=== PATIENT | female | born 1975 | race Caucasian/White ===

== ENCOUNTER 2018-01-18 07:03 | Inpatient (IN) | payer MEDICAID, OTHER ==
[~2018-01-18] VITALS: Ht 160 cm; Wt 68.2 kg
[~2018-01-18 07:03] MED LIST: CeFAZolin 2 GM/DEXTROSE 50 ML IV ONE; RINGERS SOLUTION,LACTATED 1,000 ML IV ONE
[2018-01-18] MEDS ORDERED: PREG50 PO (07:36)
[2018-01-18] MEDS ORDERED: ESCI20TA PO (07:36)
[2018-01-18] MEDS ORDERED: MAGN250T2 PO (07:36)
[2018-01-18] MEDS ORDERED: ARIP5TAB8 PO (07:36)
[2018-01-18] MEDS ORDERED: HYDR200T4 PO (07:36)
[2018-01-18] MEDS ORDERED: PILOC5 PO (07:36)
[2018-01-18] MEDS ORDERED: OMEP20 PO (07:36)
[2018-01-18] MEDS ORDERED: TRAZ-220 PO (07:36)
[2018-01-18] MEDS ORDERED: LUBI24CA2 PO (07:36)
[2018-01-18 07:38] LABS: BASOPHILS % (AUTO) 0.9 % (0.0-2.0); EOSINOPHILS % (AUTO) 0.9 % (1.0-6.0); HEMATOCRIT 37.9 % (36-46); HEMOGLOBIN 12.4 g/dL (12.0-16.0); LYMPHOCYTES # (AUTO) 1.6 K/uL (1.0-4.8); LYMPHOCYTES % (AUTO) 35.4 % (22.0-44.0); MEAN CORPUSCULAR HEMOGLOBIN 28.8 pg (26.0-34.0); MEAN CORPUSCULAR HGB CONC 32.8 G/dL (31.0-37.0); MEAN CORPUSCULAR VOLUME 88 fL (80-100); MONOCYTES # (AUTO) 0.6 K/uL (0.1-1.0); MONOCYTES % (AUTO) 12.9 % (2.0-9.0); NEUTROPHILS # (AUTO) 2.2 K/uL (1.8-7.7); NEUTROPHILS % (AUTO) 49.9 % (40.0-70.0); PLATELET COUNT (AUTO) 191 K/uL (150-450); RED BLOOD CELL COUNT(AUTO) 4.32 MIL/uL (4.00-5.20)
[2018-01-18 08:14] LABS: INR 0.9 (0.9-1.1); PROTHROMBIN TIME 9.9 SEC (9.4-11.6)
[2018-01-18 08:36] LABS: ANION GAP 7 mmol/L (8-16); CALCIUM, TOTAL 8.3 mg/dL (8.8-10.5); CARBON DIOXIDE 26 mmol/L (22-29); CHLORIDE 106 mmol/L (98-107); CREATININE 0.92 mg/dL (0.60-1.30); GLOMERULAR FILTR. RATE CALC > 60 mL/min (>60); GLUCOSE,RANDOM 91 mg/dL (70-110); SODIUM SERUM 139 mmol/L (136-145); UREA NITROGEN, BLOOD 24 mg/dL (7-18)
[2018-01-18 08:42] LABS: ALANINE AMINOTRANSFERASE 19 U/L (12-78); ALBUMIN 3.7 g/dL (3.4-5.0); ALKALINE PHOSPHATASE 65 U/L (46-116); ASPARTATE AMINOTRANSFERASE 21 U/L (15-37); BILIRUBIN,TOTAL 0.3 mg/dL (0.1-1.0); TOTAL PROTEIN, SERUM 7.2 g/dL (6.4-8.2)
[2018-01-18] MEDS ORDERED: GUM MASTIC/STORAX/MSAL/ALCOHOL LIQUID 0.67 ML VIAL TP ONE (09:45)
[2018-01-18] MEDS ORDERED: MEPERIDINE HCL/PF 25 MG/0.5 ML AMP IVP PRN (10:15)
[2018-01-18] MEDS ORDERED: HYDROmorphone 2 MG/ML SYRINGE IVP PRN (10:15)
[2018-01-18] MEDS ORDERED: DiphenhydrAMINE HCL 50 MG/ML VIAL IVP PRN (10:45)
[2018-01-18] MEDS ORDERED: BENZOCAINE/MENTHOL LOZENGE PO PRN (10:45)
[2018-01-18] MEDS ORDERED: ZOLPIDEM TARTRATE 10 MG TABLET PO PRN (10:45)
[2018-01-18] MEDS ORDERED: MAG HYDROX/AL HYDROX/SIMETH 30 ML SUSP UDCUP PO PRN (10:45)
[2018-01-18] MEDS ORDERED: MAGOX PO (10:47)
[2018-01-18] MEDS ORDERED: PREG75 PO (10:47)
[2018-01-18] MEDS ORDERED: MEPERIDINE HCL/PF 25 MG/0.5 ML AMP ONE (11:06)
[2018-01-18] MEDS ORDERED: FentaNYL CITRATE-PF 100 MCG/2 ML VIAL ONE (11:07)
[2018-01-18] MEDS: FentaNYL CITRATE-PF 100 MCG/2 ML VIAL IVP PRN ×2 (11:08→11:15)
[2018-01-18] MEDS ORDERED: HYDROmorphone 2 MG/ML SYRINGE ONE (11:14)
[2018-01-18] MEDS ORDERED: DEXAMETHASONE SOD PHOS 4 MG/ML VIAL IVP ONE (12:00)
[2018-01-18] MEDS ORDERED: GLYCOPYRROLATE 0.2 MG/ML VIAL IM ONE (12:00)
[2018-01-18] MEDS ORDERED: MIDAZOLAM HCL 2 MG/2 ML VIAL IVP ONE (12:00)
[2018-01-18] MEDS ORDERED: ONDANSETRON HCL 4 MG/2 ML VIAL IVP ONE (12:00)
[2018-01-18] MEDS ORDERED: FentaNYL CITRATE-PF 100 MCG/2 ML VIAL IVP ONE (12:00)
[2018-01-18] MEDS ORDERED: ROCURONIUM BROMIDE 10 MG/ML 5 ML VIAL IVP ONE (12:00)
[2018-01-18] MEDS ORDERED: KETAMINE HCL 50 MG/ML 10 ML VIAL IVP ONE (12:00)
[2018-01-18 12:55] VITALS: BP 110/71
[2018-01-18] MEDS ORDERED: ONDANSETRON HCL 4 MG/2 ML VIAL IVP PRN (15:45)
[2018-01-18] MEDS ORDERED: ZOLPIDEM TARTRATE 5 MG TABLET PO PRN (15:45)
[2018-01-18] MEDS ORDERED: OxyCODONE HCL/ACETAMINOPHEN 10-325 MG TABLET PO PRN (15:45)
[2018-01-18 15:51] VITALS: BP 102/64
[2018-01-18 19:55] VITALS: BP 100/60
[2018-01-18] MEDS ORDERED: OXYGEN THERAPY IH SCH (20:00)
[2018-01-18] MEDS ORDERED: PILOCARPINE HCL 5 MG TABLET PO SCH (21:00)
[2018-01-18] MEDS ORDERED: DOCUSATE SODIUM 100 MG CAPSULE PO SCH (21:00)
[2018-01-18] MEDS ORDERED: TraZODone HCL 100 MG TABLET PO SCH (21:00)
[2018-01-18] MEDS ORDERED: PREGABALIN 75 MG CAPSULE PO SCH (21:00)
[2018-01-18] MEDS: HYDROmorphone 2 MG/ML SYRINGE IVP PRN (23:29)
[2018-01-18 23:54] VITALS: BP 110/70
[2018-01-19] MEDS: HYDROmorphone 2 MG/ML SYRINGE IVP PRN ×4 (03:18→10:36)
[2018-01-19 05:16] VITALS: BP 104/64
[2018-01-19 08:04] VITALS: BP 102/59
[2018-01-19] MEDS ORDERED: PILOCARPINE HCL 5 MG TABLET PO SCH (09:00)
[2018-01-19 11:00] VITALS: BP 105/63
== END 2018-01-19 12:11 | disposition home or self-care (01) | DRG 473 ==
LOC: 4E 07:03
PROVIDERS: ADMIT Orthopaedic Surgery Orthopaedic Surgery of the Spine; ATTEND Orthopaedic Surgery Orthopaedic Surgery of the Spine
PROC: 01N10ZZ Release Cervical Nerve, Open Approach (ICD-10-PCS; 2018-01-18)
PROC: 0RB30ZZ Excision of Cervical Vertebral Disc, Open Approach (ICD-10-PCS; 2018-01-18)
PROC: 0RG10A0 Fusion of Cervical Vertebral Joint with Interbody Fusion Device, Anterior Approach, Anterior Column, Open Approach (ICD-10-PCS; principal; 2018-01-18 09:30)
DX: M48.02 Spinal stenosis, cervical region (principal); F32.9 Major depressive disorder, single episode, unspecified; K21.9 Gastro-esophageal reflux disease without esophagitis; G62.9 Polyneuropathy, unspecified; M17.0 Bilateral primary osteoarthritis of knee; J45.909 Unspecified asthma, uncomplicated; F17.210 Nicotine dependence, cigarettes, uncomplicated; G89.29 Other chronic pain
CPT/HCPCS: 87081; 97161; 97165; 97530; 97535; C1713; J0690; J1100; J1170; J2250; J2405; J3010; J3490; J7120